=== PATIENT | male | born 1980 | race Caucasian/White ===

== ENCOUNTER 2019-06-16 17:22 | Emergency (ER) | payer MEDICARE ==
[~2019-06-16] VITALS: Ht 175.3 cm; Wt 124.7 kg
[2019-06-16] MEDS ORDERED: Keflex500 MG PO (18:12)
== END 2019-06-16 18:23 | disposition home or self-care (01) ==
LOC: ER 17:22
DX: S61.217A Laceration without foreign body of left little finger without damage to nail, initial encounter (principal); F17.200 Nicotine dependence, unspecified, uncomplicated; W22.8XXA Striking against or struck by other objects, initial encounter; Y99.0 Civilian activity done for income or pay
CPT/HCPCS: 12001; 99282-25; A9270-GY

== ENCOUNTER 2019-08-24 10:48 | Emergency (ER) | payer MEDICARE, OTHER ==
[~2019-08-24] VITALS: Ht 177.8 cm; Wt 129.3 kg
[~2019-08-24 10:48] MED LIST: Keflex500 MG PO
== END 2019-08-24 11:21 | disposition home or self-care (01) ==
LOC: ER 10:48
DX: J06.9 Acute upper respiratory infection, unspecified (principal); F17.200 Nicotine dependence, unspecified, uncomplicated
CPT/HCPCS: 99283